=== PATIENT | female | born 1970 | race Caucasian/White ===

== ENCOUNTER 2017-07-23 15:01 | Outpatient (CLI) | payer BC ==
[2017-07-23 16:40] LABS: Hemoglobin 9.9 g/dL (12.0-16.0); Mean Corpuscular HGB CONC 31.5 g/dL (32.0-36.0); Mean Corpuscular Hemoglobin 22.2 pg (27.0-31.0); Mean Corpuscular Volume 70.5 fl (81.0-99.0); Mean Platelet Volume 8.1 fL (7.4-10.4); Platelet Count 233 thou/uL (130-400); RBC Distribution Width 13.3 % (11.5-14.5); Red Blood Cell (RBC) Count 4.46 mill/uL (4.20-5.40); White Blood Cell (WBC) Count 6.1 thou/uL (4.8-10.8)
[2017-07-23 16:59] LABS: Anion Gap 12 mmol/L (10-20); BUN (Urea Nitrogen) 7 mg/dL (7.0-18.7); Calc. Creatinine Clearance 0 mL/min (70-130); Calcium 9.7 mg/dL (7.8-10.44); Carbon Dioxide 26 mmol/L (22-29); Chloride 103 mmol/L (98-107); Estimated GFR-MDRD Greater than 90; Glucose 124 mg/dL (70-105); Potassium 3.8 mmol/L (3.5-5.1); Sodium 137 mmol/L (136-145)
== END 2017-07-23 15:02 | disposition home or self-care (01) ==
LOC: LABBT 15:01
PROVIDERS: ATTEND Obstetrics & Gynecology
DX: Z01.812 Encounter for preprocedural laboratory examination (principal); N92.0 Excessive and frequent menstruation with regular cycle; D25.9 Leiomyoma of uterus, unspecified; N94.10 Unspecified dyspareunia
CPT/HCPCS: 80048; 85027; 86850; 86900; 86901

== ENCOUNTER 2017-07-23 15:15 | Observation (INO) | payer BC ==
--- NOTE | 2017-07-23 07:32 | HP ---
HISTORY OF PRESENT ILLNESS: This patient is a 47-year-old female with heavy and painf ul menstruation. She had passing large of the lemon size clots with subsequent anemia reported with hemoglobin in the 9-10 range. She received iron therapy injections while in [place]. She has a histo ry of previous 3 sections, tubal ligation. She is type 2 diabetic on metformin 500 mg t.i.d . Due to the heavy menstrual bleeding, she did undergo a transvaginal ultrasound in the office in , which showed the uterus measuring 8.3 x 4.9 cm with a fundal fibroid measuring 3.4 x 3.5 cm wi th endometrial thickness of 6.2 mm. Right and left ovaries were visualized and no adnexal masses wer e seen. Pap smear reported by patient was negative in 2016. She was evaluated in my office in 02/05 17 and she was given options of endometrial ablation, but desired definitive surgical therapy. PAST MEDICAL HISTORY: As noted type 2 diabetes on metformin. PAST SURGICAL HISTORY: Prior section x3 with tubal ligation. SOCIAL HISTORY: Negative for alcohol, tobacco or illicit drug use. ALLERGIES: She has no known drug allergies. CURRENT MEDICATIONS: Metformin 500 mg p.o. t.i.d. along with iron therapy. PHYSICAL EXAMINATION: VITAL SIGNS: Blood pressure 130/70, respirations 18, height 61.5 inches, and weight 171 pounds with BMI of 31.8. HEENT: Within normal limits. CHEST: Clear to auscultation. HEART: Regular rate and rhythm. S1, S2 heart sounds. No murmurs, rubs or gallops. ABDOMEN: Soft, nontender. Vertical midline incision noted from previous sections. PELVIC: Vulva and vagina had no lesions. Cervix had no lesions. Uterus was 10 weeks size and had s ome mild tenderness. Adnexa nontender with no masses. ASSESSMENT: This is a 47-year-old [place] female G3, P3 with 3 prior sections, tubal ligation with symptomatic 10-week uterine fibroids. Desires definitive surgical therapy. PLAN: Plan is to proceed with robotic total laparoscopic hysterectomy, possible bilateral salpingo-o ophorectomy if abnormal ovaries are encountered. We will remove the remainder of her fallopian tubes for risk reduction salpingectomy and risk and benefits of procedure were discussed in detail and set for surgery.
[2017-07-23 15:17] VITALS: BMI 26.5
[2017-07-24] MEDS ORDERED: Midazolam HCl 2 mg/2 ml Vial ONE (06:08)
[2017-07-24] MEDS ORDERED: Lidocaine 2% Jelly 5 ML TUBE ONE (06:08)
[2017-07-24] MEDS ORDERED: Fentanyl 250 MCG/5 ML VIAL ONE (06:08)
[2017-07-24] MEDS ORDERED: Ondansetron HCl/PF 4 MG/2 ML Vial ONE ×2 (06:08→13:56)
[2017-07-24] MEDS ORDERED: Gabapentin 300 MG CAP ONE (06:27)
[2017-07-24] MEDS ORDERED: CeleCOXIB 100 MG CAP ONE (06:27)
[2017-07-24] MEDS ORDERED: CEFAZOLIN/Water 2 GM/20 ML SYRINGE ONE (06:27)
[2017-07-24] MEDS ORDERED: Bupivacaine HCl 0.5%/Epinephrine 1:200,000/PF 30 ml Vial ONE (06:52)
[2017-07-24] MEDS ORDERED: CeleCOXIB 100 MG CAP PO SCH (07:00)
[2017-07-24] MEDS ORDERED: Famotidine 40 MG/4 ML VIAL IV SCH (07:00)
[2017-07-24] MEDS ORDERED: Gabapentin 300 MG CAP PO SCH (07:00)
[2017-07-24] MEDS ORDERED: CEFAZOLIN/Water 2 GM/20 ML SYRINGE SLOW IVP SCH (07:15)
[2017-07-24] MEDS ORDERED: Fentanyl 100 MCG/2 ML VIAL ONE ×3 (08:23→10:12)
[2017-07-24] MEDS ORDERED: Ondansetron HCl/PF 4 MG/2 ML Vial IVP PRN ×2 (08:50→12:28)
[2017-07-24] MEDS ORDERED: Promethazine HCl 25 MG/ML VIAL SLOW IVP PRN (08:50)
[2017-07-24] MEDS ORDERED: HYDROmorphone 2 MG/ML VIAL SLOW IVP PRN (08:50)
[2017-07-24] MEDS ORDERED: Promethazine HCl 25 MG/ML VIAL IM PRN ×2 (08:50→12:28)
[2017-07-24] MEDS ORDERED: Morphine 4 MG/ML VIAL ONE ×2 (10:23→10:57)
[2017-07-24] MEDS ORDERED: HYDROmorphone 0.5 MG/0.5 ML SYRINGE ONE (11:49)
[2017-07-24] MEDS ORDERED: traMADol HCl 50 MG TAB PO PRN ×2 (12:28)
[2017-07-24] MEDS ORDERED: diphenhydrAMINE 25 MG CAP PO PRN (12:28)
[2017-07-24] MEDS ORDERED: Bisacodyl 10 MG SUPP PR PRN (12:28)
[2017-07-24] MEDS ORDERED: Morphine 4 MG/ML VIAL SLOW IVP PRN (12:28)
[2017-07-24] MEDS ORDERED: Simethicone Chewable 80 MG TAB PO PRN (12:28)
[2017-07-24] MEDS ORDERED: Acetaminophen 1,000 MG in Premix Bag 1 BAG IVPB PRN (13:44)
[2017-07-24] MEDS ORDERED: Morphine 5 MG/ML SYRINGE SLOW IVP PRN (13:45)
[2017-07-24] MEDS: Lactated Ringer's 1,000 ML IV SCH ×2 (13:50→21:32)
[2017-07-24] MEDS ORDERED: Glycopyrrolate 0.2 MG/ML 5 ML SYRINGE ONE (13:56)
[2017-07-24] MEDS ORDERED: PROPOFOL 200 MG/20 ML VIAL ONE (13:56)
[2017-07-24] MEDS ORDERED: Labetalol 100 MG/20 ML MDV ONE (13:56)
[2017-07-24] MEDS ORDERED: Lidocaine 1% PF 5 ML VIAL ONE (13:56)
[2017-07-24] MEDS ORDERED: Dexamethasone 20 MG/5 ML VIAL ONE (13:56)
--- NOTE | 2017-07-24 15:45 | OP ---
DATE OF PROCEDURE: 07/24/2017 PREOPERATIVE DIAGNOSES: 1. A 47-year-old female, G3, P3, prior section x3 with tubal ligation with s ymptomatic 10-week uterine fibroids. 2. Menorrhagia with resulting anemia. 3. Pelvic pain. POSTOPERATIVE DIAGNOSES: 1. A 47-year-old Latin-[place] female, , prior section x3 with tubal ligation with sy mptomatic 10-week uterine fibroids. 2. Menorrhagia with resulting anemia. 3. Pelvic pain. 4. Probable adenomyosis and pelvic adhesive disease. SURGERIES PERFORMED: 1. Robotic TLH with bilateral salpingectomy. 2. Lysis of adhesions. SURGEON: Kayla Asher M.D. SOUND MIXER SURGEON: Tony Garcia D.O. ANESTHESIA: General endotracheal. ESTIMATED BLOOD LOSS: 50 mL. COMPLICATIONS: None. COUNTS: Correct x2. ANTIBIOTICS: Two grams Ancef on-call to the operating room. PATHOLOGY: Uterus, cervix, and bilateral fallopian tubes. FINDINGS: 1. Normal bilateral ovaries with remnants of fallopian tubes, prior tubal ligation. 2. Thick adhesion of the left anterior abdominal wall from the lower uterine segment, status post ly sis of adhesions and also omental adhesions, status post lysis of adhesions. Uterus globularly enlar ged with multiple small fibroids noted. 3. Clear urine present in Vance catheter post-procedure with bladder watertight to distension of ove r 300 mL. 4. Bilateral ureteral peristalsis visualized post procedure. DISPOSITION: To the recovery room, stable. DESCRIPTION OF OPERATIVE PROCEDURE: The patient previously received informed consent in regards to s damien. She was taken back to the operating room where she received a general endotracheal anestheti c agent without complications. She was placed in the dorsal lithotomy position, prepped and draped i n usual sterile fashion. Vance catheter was placed at this time. A side arm speculum was placed in vagina and the anterior lip of cervix grasped with single-tooth tenaculum. The uterus sounded to 10 cm. A size 10 cm RITA uterine manipulator with a 4.0 cm cervical cup was then placed in the usual fa shion. Tenaculum and speculum removed. Attention was then turned to the abdomen where perspective trocar sites were infiltrated with 0.5% Ma rcaine with epinephrine. A 10 mm supraumbilical incision was made. Veress needle was entered into t he peritoneal cavity. Patient pressure was noted to be less than 5 mmHg and the abdomen was insuffla kate to a patient pressure of 15, approximately 4-1/2 liters of carbon dioxide gas. Veress needle was then removed and a size 12 mm trocar was placed. The robotic laparoscope was then introduced throug h a trocar sleeve confirming proper entry. Additional bilateral lower quadrant 8 mm robotic trocars were placed under laparoscopic guidance along with a right upper quadrant 11 mm patient services assistant port. The robot was then docked as the patient was placed in Trendelenburg position. Once the robot was docked , I proceeded to carry out the procedure from the console where my assistants remained at the bedside . The uterus was elevated. The left fallopian tube was grasped by my patient services assistant and the bipolar fene strated cautery was utilized to coagulate the mesosalpinx and a remnant of the fallopian tube and thi s was excised with monopolar scissors and the tube was removed through the right persistent quadrant port. The left uterine ovarian ligament that was then coagulated and transected. Serial coagulation and transection hugging close to uterine specimen was carried out. There was a thick band of any fi brotic adhesions in this area that was layered and then coagulated and transected until the left roun d ligament was reached. It was coagulated and transected and the anterior leaf of the broad ligament was then reached and this was developed a layering the vesicouterine peritoneum down from the lower uterine segment due to the adhesions from the previous section scars. The left uterine reanna ry was then isolated, coagulated in the internal cervical os region. The ureter was noted to be well lateral and inferior to this area. The bladder was distended by my patient services assistant intraoperatively and t he location of bladder noted to be well distance from the layering of the vesicouterine peritoneum an d a continuing layering was carried out dissecting the bladder atraumatically past the cervicovaginal junction. This was then carried out in likewise fashion on the patient's right side, again coagulat ing the mesosalpinx of the remnant of the fallopian fimbria and removing this with monopolar scissors and then coagulation of the right uterine ovarian ligament coagulation and transection of this. Ser ial coagulation and transection of broad ligament hugging close to the uterus down to the right round ligament which was coagulated and transected. Again, the anterior leaf of the broad ligament was en tered. Vesicouterine peritoneum again was layered dissecting the bladder atraumatically past the cer vical vaginal junction. Again, watertight testing confirmed no evidence of bladder compromise. Uter ine vessels on the right side were skeletonized and coagulated again internal cervical os region. On ce this had been accomplished, the anterior colpotomy was made from the 12-3 and 12-9 o'clock positio n. The posterior colpotomy was completed from the 6-9 and 6-3 o'clock position. Then, the specimen was delivered in the vaginal vault. Many areas of ongoing bleeding in the vaginal cuff were coagulat ed with bipolar fenestrated cautery. The monopolar scissors was exchanged for [place] needle tractor sweeper driver. My patient services assistant passed a V-Loc suture through the patient services assistant port and then the vaginal cuff was closed in full thickness starting the right angle down to the left angle and remnant of this suture was then r emoved intact. Vaginal cuff was inspected and hemostasis confirmed. The pelvis was irrigated and lujan ctioned. Again, the pedicle sites were confirmed to be hemostatic. The bladder was distended again and watertight over 300 mL of fluid distention. Bilateral ureteral peristalsis was visualized. The excess carbon dioxide gas was then released from the abdomen after the robot had been undocked. The trocar sleeves were then removed. A deep stitch of 0 Vicryl in a [id number] stitch fashion was placed in the supraumbilical fascial defect and the other trocar sites were then closed with 4-0 [place] cryl subcuticular with Dermabond. Vaginal cuff was checked with a sponge stick vaginally and hemosta sis confirmed. The patient was awakened from anesthesia and transferred to the recovery room in stab le condition.
[2017-07-24] MEDS: Ketorolac Tromethamine 30 MG/ML VIAL IVP SCH ×2 (17:10→21:31)
[2017-07-24] MEDS ORDERED: Ondansetron ODT 4 MG TAB PO PRN (21:44)
[2017-07-25] MEDS: Ketorolac Tromethamine 30 MG/ML VIAL IVP SCH (03:36)
[2017-07-25 05:55] LABS: Hemoglobin 8.1 g/dL (12.0-16.0); Mean Corpuscular HGB CONC 31.5 g/dL (32.0-36.0); Mean Corpuscular Hemoglobin 22.2 pg (27.0-31.0); Mean Corpuscular Volume 70.4 fl (81.0-99.0); Mean Platelet Volume 8.4 fL (7.4-10.4); Platelet Count 213 thou/uL (130-400); RBC Distribution Width 13.3 % (11.5-14.5); Red Blood Cell (RBC) Count 3.66 mill/uL (4.20-5.40); White Blood Cell (WBC) Count 7.8 thou/uL (4.8-10.8)
[2017-07-25 07:56] VITALS: BP 102/57; TEMP 98.9
--- NOTE | 2017-07-25 07:57 | PDOC.PP ---
Post Progress Note Post Day #: post op day 1 from robotic tlh/ Subjective: ambulating/voiding/minimal pain. PO intake tolerated: yes Flatus: yes Ambulation: yes Vital Signs (12 hours) Temp Pulse Resp BP Pulse Ox 07/25/17 04:35 94 L 07/25/17 03:35 98.3 F 85 16 100/63 92 L 07/24/17 20:10 95 Weight Admit Weight 5.291 oz Weight 5.291 oz - Physical Examination General: NAD Cardiovascular: no m/r/g, RRR Respiratory: clear to auscultation bilaterally, non-labored breathing Abdominal: + bowel sounds, lochia, no distention, appropriately TTP Result Diagrams: 07/25/17 05:11 - Assessment/Plan doing well post op day 1 from robotic hyst d/c home. f/u 2 and 6 weeks. rx tramadol to [facility].
--- NOTE | 2017-07-26 12:12 | DIS ---
Twenty-two hour observation status note. DIAGNOSES: 1. Menorrhagia. 2. Dysmenorrhea. 3. Uterine fibroids. 4. Chronic anemia due to menorrhagia and adenomyosis. PROCEDURE PERFORMED: Robotic TLH with bilateral salpingectomy. SUMMARY OF HOSPITAL COURSE: Ms. Granados is a 47-year-old female, prior secti on x3 and tubal ligation who had a long history of menorrhagia with previous significant anemia issue s due to the chronic blood loss. She had noted to have a uterine fibroid and also ultrasound finding s suggestive of adenomyosis and clinical history consistent with this with significant dysmenorrhea a nd chronic pelvic pain. She underwent definitive surgical therapy with a robotic total laparoscopic hysterectomy, bilateral salpingectomies on 07/24/2017. Postoperatively, the patient progressed well. She remained afebrile and had stable vital signs throughout and she had appropriate blood loss, pos top blood loss follow up from 31 to 25. That was hematocrit readings. She was discharged the [facility] of postop day #1. DISCHARGE MEDICATIONS: Will be [id number] ibuprofen 800 mg q.8 hours and Tramadol 50 mg q.6 ho urs p.r.n. pain. Pathology did show evidence of adenomyosis and small uterine fibroid with a uterine weight of 156 gra ms. The fallopian tubes showed no pathologic disease. Cervix had no disease present. She will have scheduled followup 2 and 6 weeks postop.
== END 2017-07-25 11:38 | disposition home or self-care (01) ==
LOC: EDSTATUS 15:15 → INTOOBSV 07-24 06:03 → SURG A 07-24 06:03 → 3SE 07-24 11:39
PROVIDERS: ADMIT Obstetrics & Gynecology; ATTEND Obstetrics & Gynecology
PROC: 0UT94ZZ Resection of Uterus, Percutaneous Endoscopic Approach (ICD-10-PCS; principal; 2017-07-24)
PROC: 0UT74ZZ Resection of Bilateral Fallopian Tubes, Percutaneous Endoscopic Approach (ICD-10-PCS; 2017-07-24)
DX: N80.0 Endometriosis of uterus (principal); D25.9 Leiomyoma of uterus, unspecified; N92.0 Excessive and frequent menstruation with regular cycle; N73.6 Female pelvic peritoneal adhesions (postinfective); D50.0 Iron deficiency anemia secondary to blood loss (chronic); E11.9 Type 2 diabetes mellitus without complications; Z79.84 Long term (current) use of oral hypoglycemic drugs; Z98.51 Tubal ligation status
CPT/HCPCS: 36415; 36416; 85027; 88307; 96361; 96374; 96375; 96376; J2270; G0378; J0670; J1100; J1170; J1885; J2001; J2250; J2405; J2704; J3010; Q0162

== ENCOUNTER 2019-12-05 09:21 | Outpatient (CLI) | payer OTHER ==
--- NOTE | 2019-12-05 11:46 | RAD ---
CHEST PA AND LATERAL 2 VIEWS: HISTORY: History of pneumonia, prior COVID positive. COMPARISON: 10/14/2019. FINDINGS: Improved aeration from the prior study. the previously noted bibasilar linear parenchymal changes [place] ve resolved or markedly improved. No new process. No pleural effusion. Heart size is normal. IMPRESSION: Improved aeration with marked improvement/resolution of the previously noted bibasilar parenchymal ch anges. No significant new process. POS: RRE
== END 2019-12-05 09:22 | disposition home or self-care (01) ==
LOC: BICRAD 09:21
PROVIDERS: ATTEND Family Medicine
DX: Z87.01 Personal history of pneumonia (recurrent) (principal); J98.4 Other disorders of lung
CPT/HCPCS: 71046